=== PATIENT | male | born 1960 | race Native Hawaiian/Other Pacific Islander ===

== ENCOUNTER → 2017-08-23 16:04 | Outpatient (CLI) | payer OTHER | END | disposition home or self-care (01) | LOC: AMB 16:04 | DX: Z04.1 Encounter for examination and observation following transport accident (principal) ==

== ENCOUNTER 2021-03-06 11:21 | Outpatient (CLI) | payer BC | END 2021-03-06 21:49 | disposition home or self-care (01) | LOC: RAD 11:21 | PROVIDERS: ATTEND Physician Assistant | DX: M54.59 Other low back pain (principal) ==

== ENCOUNTER 2021-03-20 11:01 | Outpatient (CLI) | payer BC | END 2021-03-20 21:01 | disposition home or self-care (01) | LOC: MRI 11:01 | PROVIDERS: ATTEND Physician Assistant | DX: M48.061 Spinal stenosis, lumbar region without neurogenic claudication (principal) ==

== ENCOUNTER 2021-12-01 12:54 | Outpatient (CLI) | payer BC | END 2021-12-01 18:59 | disposition home or self-care (01) | LOC: MRI 12:54 | PROVIDERS: ATTEND Anesthesiology | DX: M25.552 Pain in left hip (principal) ==

== ENCOUNTER 2022-11-30 08:15 | Outpatient (CLI) | payer BC | END 2022-11-30 19:13 | disposition home or self-care (01) | LOC: CT 08:15 | PROVIDERS: ATTEND Internal Medicine | DX: R79.1 Abnormal coagulation profile (principal) | CPT/HCPCS: Q9963 ==